=== PATIENT | male | born 1980 ===

== ENCOUNTER → 2021-06-20 11:05 | Outpatient (BNVA) | payer MEDICAID, SELFPAY | PROVIDERS: PCP Internal Medicine; Referring Provider Nurse Practitioner Primary Care; Visit Provider Surgery | DX: D17.1 Benign lipomatous neoplasm of skin and subcutaneous tissue of trunk (principal) | CPT/HCPCS: 99202 ==

== ENCOUNTER 2021-07-05 09:53 | Day surgery (SDC) | payer MEDICAID, SELFPAY ==
[2021-06-28 13:17] VITALS: BMI 26.4
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
[2021-07-05 10:13] VITALS: BP 153/105; PULSE 81; RESP 16; TEMP 36.6; O2SAT 97
[2021-07-05] MEDS: Lactated Ringers 1,000 ML 100 ML IVCONT (10:21)
--- NOTE | 2021-07-05 11:34 | MHC.SHP ---
Pre-Procedural Eval Section A Date of Service: 07/05/21 Section B Chief Complaint: lipoma of back Allergies: Allergies Allergy/AdvReac Type Severity Reaction Status Date / Time No Known Allergies Allergy Verified 06/20/21 11:15 [No Known Allergies*] Plan I have reviewed the history and physical and performed a pertinent physical examination on my patient. No changes have occurred unless specified.
--- NOTE | 2021-07-05 12:27 | P.OP_ITS ---
Operative Note Operative Note Date of Service: 07/05/21 Narrative: Preop diagnosis: Lipoma of back Postop diagnosis: The same Procedure: Excision of lipoma from the back under monitored anesthesia care Surgeon: Raz Nelson MD 1st infertility medical assistant: LAURA Anguiano The patient is a 41-year-old male with a lipomatous mass on the measuring about 4 cm in size. He wanted to proceed with excision and he wanted this done under monitored anesthesia care in view of his QA anxiety. He was aware of the risks, benefits, and alternatives. He was brought to the operating room placed in sloppy right lateral decubitus position under monitored anesthesia care. The lipoma was seen on the upper back a little to the left of the midline. This area was prepped and draped. A surgical time-out was done. Patient received cefazolin preoperatively. Lidocaine 1% was used to infiltrate the area. I then made the incision on the skin overlying the lipoma using a blade 15. This was carried down through the full-thickness of skin to the subcutaneous fat with electrocautery. We continued to dissect the subcutaneous fat until was able to visualize lipomatous tissue. I then sharply dissected the lipoma off the rest of the surrounding subcutaneous layer. I dissected this posteriorly off of the fascia. This was done sharply with Metzenbaum scissors as well as electrocautery. I was eventually able to free up the entire lipoma. The lipoma measured about 4.1 cm by 3.9 cm. I cauterized oozing areas on the excision site. Once hemostasis was ensured, I irrigated. I closed the deep subcutaneous layer with Dexon 3-0 interrupted sutures. Skin closure was achieved with Dexon 4-0 subcuticular stitch. Steri-Strips and dressings were applied. The incision was infiltrated with Marcaine 0.5% for postop analgesia and the procedure was completed The patient tolerated procedure well. There were no complication noted. Initial and final counts of sponges and instruments were correct. Estimated blood loss was about 5 cc. The patient is extubated without difficulty and transferred to the recovery room with stable vital signs.
[2021-07-05 12:50] VITALS: BP 108/68; PULSE 90; RESP 10; TEMP 36.9; O2SAT 97
[2021-07-05 13:04] VITALS: BP 124/96; PULSE 93; RESP 17; O2SAT 97
[2021-07-05 13:19] VITALS: BP 130/90; PULSE 77; RESP 17; TEMP 36.9; O2SAT 98
== END 2021-07-05 13:40 ==
LOC: HO.SSS 09:53
PROVIDERS: PCP Nurse Practitioner Primary Care; Visit Provider Surgery
PROC: (CPT 21931; principal; 2021-07-05 12:00)
DX: D17.1 Benign lipomatous neoplasm of skin and subcutaneous tissue of trunk (principal); I10 Essential (primary) hypertension; F43.10 Post-traumatic stress disorder, unspecified; F41.9 Anxiety disorder, unspecified; F41.0 Panic disorder [episodic paroxysmal anxiety]; Z79.899 Other long term (current) drug therapy; Z86.16 Personal history of COVID-19
CPT/HCPCS: 21931; 88304; J0690; J2250; J3010

== ENCOUNTER → 2021-07-17 11:31 | Outpatient (BNVA) | payer MEDICAID, SELFPAY | PROVIDERS: PCP Nurse Practitioner Primary Care; Referring Provider Nurse Practitioner Primary Care; Visit Provider Surgery | DX: D17.1 Benign lipomatous neoplasm of skin and subcutaneous tissue of trunk (principal); I10 Essential (primary) hypertension | CPT/HCPCS: 99212 ==

== ENCOUNTER 2022-05-15 16:03 | Emergency (ER) | payer MEDICAID, SELFPAY ==
--- NOTE | 2022-05-15 16:13 | ECG_ITS ---
Test Reason : chest tightness Blood Pressure : / mmHG Vent. Rate : 065 BPM Atrial Rate : 065 BPM P-R Int : 134 ms QRS Dur : 096 ms QT Int : 400 ms P-R-T Axes : 031 054 045 degrees QTc Int : 416 ms Normal sinus rhythm Normal ECG No previous ECGs available Referred By: Generic ED Physician Electronically Signed By:MICHELLE PRETTY
[2022-05-15 16:51] VITALS: BP 137/91; PULSE 66; RESP 18; TEMP 36.3; O2SAT 98; BMI 25.8
[2022-05-15 17:14] LABS: MANUAL DIFF FLAG NO
[2022-05-15 17:26] LABS: Basophils Percent Auto 0.3 % (0-2); Eosinophils Absolute Auto 0.1 X10*3/uL (0.0-0.4); Hematocrit 48.9 % (42.0-52.0); Imm Gran Abs Auto 0.02 X10*3/uL (0.00-0.03); Imm Gran Pct Auto 0.2 % (0.0-0.4); Lymphocytes Absolute Auto 2.7 X10*3/uL (1.2-4.9); Lymphocytes Percent Auto 31.1 % (20-40); Mean Corpuscular HGB Conc 32.7 g/dl (31.0-36.0); Mean Corpuscular Hemoglobin 27.6 pg (27.0-33.0); Mean Corpuscular Volume 84.5 fL (80.0-98.0); Mean Platelet Volume 8.7 fL (9.4-12.4); Monocytes Absolute Auto 0.8 X10*3/uL (0.1-1.2); Monocytes Percent Auto 8.9 % (2-11); Neutrophils Absolute Auto 5.1 x10*3/uL (2.0-8.3); Neutrophils Percent Auto 58.5 % (45-73); Platelet Count 408 X10*3/uL (160-400); Red Blood Count 5.79 X10*6/uL (4.60-5.80); Red Cell Distribution Width 12.6 % (11.0-16.0); White Blood Count 8.8 X10*3/uL (4.8-10.8)
[2022-05-15 17:27] LABS: Anion Gap 15 (12-20); Blood Urea Nitrogen 13 mg/dL (9-16); Carbon Dioxide 29 mmol/L (22-29); Chloride 101 mmol/L (96-108); Creatinine Clr Calc Pharmacy 97.4; Estimated Glomerular Filt Rate > 60; Glucose Random 80 mg/dL (60-115); Potassium 4.5 mmol/L (3.3-5.1); Sodium 140 mmol/L (135-145)
[2022-05-15 17:35] LABS: Troponin-I High Sensitivity < 3.5 ng/L (<3.5-35.0)
[2022-05-15 20:52] VITALS: BP 131/80; PULSE 58; RESP 15; O2SAT 97
== END 2022-05-15 21:46 | disposition left against medical advice (07) ==
PROVIDERS: Emergency Provider Emergency Medicine; PCP Nurse Practitioner Primary Care
DX: R07.89 Other chest pain (principal); Z79.899 Other long term (current) drug therapy
CPT/HCPCS: 36415; 80048; 84484; 85025; 93005; 99283

== ENCOUNTER 2022-05-16 14:39 | Emergency (ER) | payer MEDICAID, SELFPAY ==
--- NOTE | ~2022-05-16 | CT_ITS ---
EXAMINATION: CT HEAD WITHOUT CONTRAST CLINICAL INFORMATION: Right-sided pain and pressure COMPARISON: 09/22/2019 TECHNIQUE: Contiguous axial imaging was performed from the skull base to vertex without intravenous administration of contrast. This CT examination was performed using dose optimization techniques as appropriate, variously including the following: *Automated exposure control *Adjustment of mA and/or kV according to patient size (this includes techniques or standardized protocols for targeted exams where dose is matched to indication/reason for exam; i.e. extremities or head) *Use of iterative reconstruction technique DLP: 700 mGy-cm FINDINGS: There is no midline shift. There is no mass effect. There is no hemorrhage. The basilar cisterns appear patent. The posterior fossa is within normal limits. No extra-axial collection. The simons-white matter is maintained. The ventricular system is within normal limits. The partially visualized sinuses are grossly clear. CT/CT head/brain wo IV con IMPRESSION: No acute intracranial pathology.
--- NOTE | ~2022-05-16 | XR_ITS ---
EXAMINATION: XR CHEST CLINICAL INFORMATION: Chest pain COMPARISON: None TECHNIQUE: 2 views of the chest were obtained. FINDINGS: No acute finding. No infiltrate. There is no effusion. The cardiac silhouette is within normal limits. The hilar structures do not appear pathologically enlarged. There is no effusion. XR/XR chest 2V IMPRESSION: No acute finding.
[2022-05-16 15:45] VITALS: BP 135/89; PULSE 72; RESP 16; TEMP 36.9; O2SAT 95; BMI 25.8
[2022-05-16 16:54] VITALS: BP 141/95; PULSE 69; RESP 18; TEMP 36.7; O2SAT 97
--- NOTE | 2022-05-16 17:05 | PC.NURSE ---
was here yesterday afternoon, had labs drawn but left as hungry
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
[2022-05-16 17:33] LABS: MANUAL DIFF FLAG NO
[2022-05-16 17:37] LABS: Basophils Absolute Auto 0.1 X10*3/uL (0.0-0.2); Basophils Percent Auto 0.4 % (0-2); Eosinophils Percent Auto 0.4 % (0-4); Hematocrit 51.1 % (42.0-52.0); Hemoglobin 16.8 g/dl (14.0-18.0); Imm Gran Abs Auto 0.03 X10*3/uL (0.00-0.03); Imm Gran Pct Auto 0.3 % (0.0-0.4); Lymphocytes Absolute Auto 2.4 X10*3/uL (1.2-4.9); Lymphocytes Percent Auto 21.3 % (20-40); Mean Corpuscular HGB Conc 32.9 g/dl (31.0-36.0); Mean Corpuscular Hemoglobin 27.3 pg (27.0-33.0); Mean Platelet Volume 8.5 fL (9.4-12.4); Monocytes Absolute Auto 0.9 X10*3/uL (0.1-1.2); Monocytes Percent Auto 8.2 % (2-11); Neutrophils Absolute Auto 7.9 x10*3/uL (2.0-8.3); Neutrophils Percent Auto 69.4 % (45-73); Platelet Count 412 X10*3/uL (160-400); Red Blood Count 6.16 X10*6/uL (4.60-5.80); Red Cell Distribution Width 12.5 % (11.0-16.0); White Blood Count 11.4 X10*3/uL (4.8-10.8)
[2022-05-16 17:52] LABS: Alanine Aminotransferase 33 U/L (0-40); Albumin Level 4.6 g/dL (3.5-5.0); Alkaline Phosphatase 77 U/L (39-117); Anion Gap 16 (12-20); Aspartate Amino Transferase 21 U/L (5-37); Bilirubin Total 0.4 mg/dL (0.0-1.0); Blood Urea Nitrogen 13 mg/dL (9-16); Carbon Dioxide 28 mmol/L (22-29); Chloride 101 mmol/L (96-108); Creatinine Clr Calc Pharmacy 89.6; Estimated Glomerular Filt Rate > 60; Glucose Random 143 mg/dL (60-115); Potassium 4.5 mmol/L (3.3-5.1); Sodium 140 mmol/L (135-145); Total Protein 7.7 g/dL (6.5-8.0)
[2022-05-16 17:55] LABS: Troponin-I High Sensitivity < 3.5 ng/L (<3.5-35.0)
[2022-05-16 18:37] LABS: COVID-19 Test Negative (Negative)
== END 2022-05-16 19:43 | disposition home or self-care (01) ==
PROVIDERS: Physician Assistant Medical; Emergency Provider Internal Medicine; PCP Nurse Practitioner Primary Care
DX: R07.89 Other chest pain (principal); M79.10 Myalgia, unspecified site; F41.9 Anxiety disorder, unspecified; I10 Essential (primary) hypertension; Z20.822 Contact with and (suspected) exposure to COVID-19; Z79.899 Other long term (current) drug therapy
CPT/HCPCS: 70450; 71046; 80053; 82550; 83735; 84484; 85025; 87635; 99284

== ENCOUNTER 2023-09-28 11:19 | Outpatient (REF) | payer MEDICAID, SELFPAY ==
[2023-09-28 14:00] LABS: Anion Gap 14 (12-20); Blood Urea Nitrogen 12 mg/dL (9-16); Calcium 9.9 mg/dL (8.4-10.2); Carbon Dioxide 26 mmol/L (22-29); Chloride 103 mmol/L (96-108); Cholesterol 202 mg/dL (<200); Estimated Glomerular Filt Rate > 60; Glucose Random 96 mg/dL (60-115); HDL Cholesterol 53 mg/dL (>40); LDL Cholesterol Calculated 124 mg/dL (<100); Magnesium 2.3 mg/dL (1.6-2.6); Potassium 4.7 mmol/L (3.3-5.1); Sodium 138 mmol/L (135-145); Triglycerides 128 mg/dL (<150)
[2023-09-28 14:06] LABS: Creatinine Urine 100.52 mg/dL; Microalbumin Urine < 5.0 mg/L
== END 2023-09-28 11:20 | disposition home or self-care (01) ==
LOC: HO.HHCL 11:19
PROVIDERS: Visit Provider Nurse Practitioner Primary Care
DX: I10 Essential (primary) hypertension (principal); R25.2 Cramp and spasm; E78.5 Hyperlipidemia, unspecified
CPT/HCPCS: 36415; 80048; 80061; 82043; 82570; 83735

== ENCOUNTER 2024-02-12 13:59 | Outpatient (AMB) | payer MEDICAID, SELFPAY ==
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
[2024-02-12 14:07] VITALS: BP 124/84; PULSE 94; O2SAT 99; BMI 30.6
== END 2024-02-12 15:00 | disposition home or self-care (01) ==
PROVIDERS: PCP Nurse Practitioner Primary Care; Visit Provider Nurse Practitioner Family
DX: R06.83 Snoring (principal); G47.19 Other hypersomnia; G47.9 Sleep disorder, unspecified; R51.9 Headache, unspecified; R25.3 Fasciculation
CPT/HCPCS: 99204

== ENCOUNTER → 2024-02-12 13:59 | Outpatient (BNVA) | payer MEDICAID, SELFPAY | PROVIDERS: PCP Nurse Practitioner Primary Care; Visit Provider Nurse Practitioner Family | DX: R06.83 Snoring (principal); G47.19 Other hypersomnia; R51.9 Headache, unspecified; R25.3 Fasciculation | CPT/HCPCS: 99212 ==

== ENCOUNTER 2024-09-01 15:04 | Outpatient (REF) | payer MEDICAID, SELFPAY ==
--- NOTE | ~2024-09-01 | XR_ITS ---
CLINICAL HISTORY: pleuritic pain 2 view chest x-ray Comparison: None Findings: No consolidation or effusion. Heart size is normal. No acute fracture. IMPRESSION: 1. No acute findings. This document has been electronically signed by: Basil Huddleston MD on 09/06/2024 13:58:40
--- NOTE | ~2024-09-01 | XR_ITS ---
CLINICAL HISTORY: acute right shoulder pain 4 view right shoulder Comparison: None Findings: No fractures or dislocations. No significant loss of joint space or osteophytes. No erosions. No radiopaque foreign body. IMPRESSION: 1. No acute findings This document has been electronically signed by: Basil Huddleston MD on 09/06/2024 13:57:29
== END 2024-09-01 15:05 | disposition home or self-care (01) ==
LOC: HO.XRAY 15:04
PROVIDERS: PCP Nurse Practitioner Primary Care; Visit Provider Family Medicine
DX: R07.81 Pleurodynia (principal); M25.511 Pain in right shoulder
CPT/HCPCS: 71046; 73030

== ENCOUNTER → 2024-09-01 15:10 | Outpatient (BNV) | payer MEDICAID, SELFPAY | PROVIDERS: PCP Nurse Practitioner Primary Care; Visit Provider Radiology Diagnostic Radiology | DX: R07.81 Pleurodynia (principal); M25.511 Pain in right shoulder | CPT/HCPCS: 71046; 73030 ==

== ENCOUNTER 2025-08-15 11:10 | Outpatient (REF) | payer MEDICAID, SELFPAY ==
--- OUTSIDE RECORDS SUMMARY | 2025-08-14 11:15 | XMS_ITS | Encounter Summary ---
Author Organization [employer] Address [address] [place] [address] [address] [address] Care Team Providers Care Malware Analyst Name Role Phone Humaira Limon Primary Care Provider [phone] Reason for Referral * Consultation (Routine) - Authorized Specialty Diagnoses / Procedures Referred By Renetta t Referred To Contact Behavioral Health Diagnoses PTSD (post-traumatic stress disorder) Procedures Referral to Behavioral Health Humaira Limon ANP [address] [place] [address] Phone: tel: fax: Referral ID Status Reason Start Date Expiration Date Visits Requested Visits Authorized [id number] Authorized Specialty Services Required 5 08/14/2026 1 1 * Consultation (Routine) - Authorized Specialty Diagnoses / Procedures Referred By Renetta t Referred To Contact Gastroenterology Diagnoses Family history of colon cancer Humaira Limon ANP [address] [place], [place] Phone: tel: fax: [facility] Referral ID Status Reason Start Date Expiration Date Visits Requested Visits Authorized [id number] Authorized Specialty Services Required 5 08/14/2026 6 6 * Consultation (Routine) - Authorized Specialty Diagnoses / Procedures Referred By Contchani t Referred To Contact Cardiology Diagnoses Atypical chest pain Humaira Limon ANP [address] [place] [address] Phone: tel: fax: [facility] Referral ID Status Reason Start Date Expiration Date Visits Requested Visits Authorized [id number] Authorized Specialty Services Required 08/14/2026 6 6 * Imaging (Routine) - Authorized Specialty Diagnoses / Procedures Referred By Contchani t Referred To Contact Radiology Diagnoses Lung nodule seen on imaging study Procedures CT Chest w/o Contrast Humaira Limon ANP [address] [place] [address] Phone: tel: fax: [facility] [address] [place] [address] Phone: tel: fax: Referral ID Status Reason Start Date Expiration Date V isits Requested Visits Authorized [id number] Authorized 08/14/2025 08/14/2026 1 1 Reason for Visit * Reason Comments Follow-up PreDM Encounter Details Date Type Department Care Team (Late st Contact Info) Description 08/14/2025 11:15 AM EST Office Visit [facility] [address] [place] [address] Humaira Limon ANP [address] [place] [address] Prediabetes (Primary Dx); Lung nodule seen on imaging study; Family history of colon cancer; Family history of premature CAD; Atypical chest pain; Encounter for immunization; Essential hypertension; PTSD (post-traumatic stress disorder); Dietary counseling; Exercise counseling Social History Tobacco Use Types Packs/Day Years Used Date Smoking Tobacco: Never Passive Smoke Exposure: Never Smokeless Tobacco: Never Tobacco Cessation:Counseling Given: Not Answered Alcohol Use Standard Drinks/Week Comments Not Currently 0 (1 standard drink = 0.6 oz pur e alcohol) Depression Answer Date Recorded Patient Health Questionnaire-9 Score 8 08/14/2025 Patient Health Questionnaire-9 Score 8 08/14/2025 Last PHQ-9: Questionnaire Data Not on file 1 10/15/2024 Housing Stability Answer Date Recorded What is your housing situation today? I have daljit celeste 09/26/[address] you li ve. Do you have problems with any of the following? None of the above 09/26/2024 Food Insecurity Answer Date Recorded Within the past 12 months, y ou worried that your food would run out before you got money to buy more: Never True 02/01/2025 Within the past 12 months,th e food you bought just didn't last and you didn't have enough money to get more: Never True 11/2024 Transportation Answer Date Recorded In the past 12 months, has l ack of transportation kept you from medical appts, meetings, work or from getting things needed for daily living? No 11/01/2024 Utilities Answer Date Recorded In the past 12 months, has t he electric, gas, oil or water company threatened to shut off services in your home? No 02/01/2025 Depression Answer Date Recorded Patient Health Questionnaire-2 Score 2 08/14/2025 Internet Access Answer Date Recorded Internet Access Q1 Yes 11/01/2024 Internet Access Q2 Not on file 11/01/2024 Sex and Gender Information Value Date Recorded Sex Assigned at Male 06/30/2022 10:15 AM EDT Legal Sex Male 10:15 AM EDT Gender Identity Male 06/30/2022 10:15 AM EDT Sexual Orientation Straight 06/30/2022 10 :15 AM EDT documented as of this encounter Last Filed Vital Signs Vital Sign Reading Time Taken Comments Blood Pressure 120/80 08/14/2025 11:34 AM EST Pulse 72 08/14/2025 11:34 AM EST Temperature 36.3 C (97.3 F) 08/14/2025 11:34 AM EST Respiratory Rate 15 08/14/2025 11:34 AM EST Oxygen Saturation 95% 08/14/2025 11:34 AM EST Inhaled Oxygen Concentration - - Weight 95.3 kg (210 lb) 08/14/2025 11:34 AM EST Height 179.1 cm (5' 10.5 ) 08/14/2025 11:[address] Body Mass Index 29.71 08/14/2025 11:34 AM EST documented in this encounter Functional Status * Over the past 2 weeks, how often have you been bothered by any of the following problems? Question Answer Date of Assessment Author Patient Health Questionnaire -2 Score 2 08/14/2025 11:35 AM Pepe Nolan [place] * Little interest or pleasure in doing things Answer Date of Assessment Author Several days 08/14/2025 11:35 AM Pepe Nolan [place] * Feeling down, depressed, or hopeless Answer Date of Assessment Author Several days 08/14/2025 11:35 AM Pepe Nolan [place] * Trouble falling or staying asleep, or sleeping too much Answer Date of Assessment Author Several days 08/14/2025 11:35 AM Pepe Nolan MA * Feeling tired or having little energy Answer Date of Assessment Author Not at all 08/14/2025 11:35 AM Pepe Nolan [place] * Poor appetite or overeating Answer Date of Assessment Author Several days 08/14/2025 11:35 AM Pepe Nolan MA * Feeling bad about yourself - or that you are a failure or have let yourself or your family down Answer Date of Assessment Author Not at all 08/14/2025 11:35 AM Pepe Nolan MA * Trouble concentrating on things, such as reading the newspaper or watching television Answer Date of Assessment Author Nearly every day 08/14/2025 11:35 AM Pepe Nolan MA * Moving or speaking so slowly that other people could have noticed? Or the opposite - being so fidgety or restless that you have been moving around a lot more than usual. Answer Date of Assessment Author Several days 08/14/2025 11:35 AM Pepe Nolan MA * Thoughts that you would be better off or hurting yourself in some way Answer Date of Assessment Author Not at all 08/14/2025 11:35 AM Pepe Nolan MA * Patient Health Questionnaire-9 Score Answer Date of Assessment Author 8 08/14/2025 11:35 AM Pepe Nolan MA * Over the last 2 weeks, how often have you been bothered by any of the following problems? Question Answer Date of Assessment Author Feeling nervous, anxious, or on edge 1 08/14/2025 11:36 AM Pepe Nolan MA Not being able to stop or co ntrol worrying 1 08/14/2025 11:36 AM Pepe Nolan MA Worrying too much about diff erent things 1 08/14/2025 11:36 AM Pepe Nolan MA Trouble relaxing 1 08/14/2025 11:36 AM Pepe Nolan MA Being so restless that it is hard to sit still 0 08/14/2025 11:36 AM Pepe Nolan MA Becoming easily annoyed or irritable 0 08/14/2025 11:36 AM Pepe Nolan MA Feeling afraid as if somethi ng awful might happen 0 08/14/2025 11:36 AM Pepe Nolan MA BITA-7 Total Score 4 08/14/2025 11:36 AM Pepe Nolan MA * How difficult have these problems made it for you to do your work, take care of things at home, or get along with other people? Answer Date of Assessment Author Not difficult at all 08/14/2025 11:35 AM Pepe Parker MA documented as of this encounter Progress Notes * TIN Laws - 08/14/2025 11:15 AM EST SUBJECTIVE: Chirag Hdz is a 45 y.o. year old male who presents for chronic disease management. Denies recent illness, injury, or hospitalization. PMH preDM, PTSD, HTN, low HDL Acute Concerns: Did have sick visit at [facility] for OM R ear 07/26/25. Wants to repeat CT scan 09/11/24 He thinks mom had ND when she was young. He has had a few episodes again of L sided CP. Not assoc w/ exertion. No SOB/dizziness. Chirag Hdz, age: 45 years Ear Infection (Right Ear) - Recent right ear infection diagnosed about 1-2 weeks prior to visit - Treated with antibiotics (2 pills per day for about a week) prescribed by Dr. Robert - Pain resolved, but occasional sensation of wetness persists. Exam is wnl. COVID-19 - Had COVID-19 about one month prior to visit PTSD and Hallucinations - History of PTSD, previously on medication prescribed by Dr. 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, construction chemicals/particulate - Lives in building with shared ventilation, reports exposure to secondhand smoke Headaches and Chest Pain - Recent episodes of waking with sharp headaches - Occasional chest pain - Monitors blood pressure at home, associates high blood pressure with headaches, nausea, and dizziness Rash/Warts - History of rash and warts, previously treated with ointment and oral medication (tablets startingwith T ) - Rash recurred after stopping medication about 1-2 months ago - Still has remaining tablets at home [facility]CM OCP but actually is , about to give to 2nd kid (baby girl) Non-smoker No alcohol Lab Results Component Value Date HGBA1C 5.9 02/01/2025 Social History Social History Narrative Not on file Problem List[1] Surgical History[2] Family History[3] Review of Systems Constitutional: Negative for fatigue, fever and unexpected weight change. HENT: Negative for sore throat. Respiratory: Negative for chest tightness, shortness of breath and wheezing. Cardiovascular: Positive for chest pain. Negative for palpitations and leg swelling. Gastrointestinal: Negative for abdominal pain and constipation. Endocrine: Negative for polydipsia, polyphagia and polyuria. Genitourinary: Negative for difficulty urinating and dysuria. Musculoskeletal: Negative for back pain. Skin: Negative for rash. Neurological: Negative for weakness and headaches. OBJECTIVE: Vitals: 08/14/25 1134 BP: 120/80 BP Location: Left arm Patient Position: Sitting BP Cuff Size: Adult Pulse: 72 Resp: 15 Temp: 97.3 ??F (36.3 ??C) TempSrc: Temporal SpO2: 95% Weight: 210 lb (95.3 kg) Height: 5' 10.5 (1.791 m) Physical Exam Constitutional: General: He is not in acute distress. Appearance: Normal appearance. He is not ill-appearing. HENT: Head: Normocephalic and atraumatic. Right Ear: Tympanic membrane and ear canal normal. Left Ear: Tympanic membrane and ear canal normal. Eyes: General: No scleral icterus. Extraocular Movements: Extraocular movements intact. Pupils: Pupils are equal, round, and reactive to light. Cardiovascular: Rate and Rhythm: Normal rate and regular rhythm. Pulmonary: Effort: Pulmonary effort is normal. No accessory muscle usage or respiratory distress. Breath sounds: Normal breath sounds. Skin: General: Skin is warm and dry. Neurological: Mental Status: He is alert and oriented to person, place, and time. Psychiatric: Mood and Affect: Mood normal. Behavior: Behavior normal. ASSESSMENT/PLAN Chirag was seen today for follow-up. Diagnoses and all orders for this visit: Prediabetes (Primary) Lab Results Component Value Date HGBA1C 5.9 02/01/2025 Lifestyle recommendations: be as active as able, ideally exercise 150min moderate intensity or 75min vigorous intensity weekly; increase intake of vegetables, fruits, whole grains, fish. Try to minimize intake of sugary or greasy food and drink. Use olive oil or vegetable, peanut, canola, or similar oil for cooking. Decrease or stop drinking alcohol if you drink, quit/decrease smoking if you smoke. 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 Continue to encourage low salt diet, regular exercise, home BP monitoring, compliance with medications. Call clinic if BP is frequently >150/90 Go to ED/call 911 if > 170/100 and having sx such as SLAUGHTER, visual changes, chest pain, SOB Last renal function: Lab Results Component Value Date GLUCOSE 96 09/28/2023 NA 138 09/28/2023 K 4.7 09/28/2023 CO2 26 09/28/2023 CL 103 09/28/2023 BUN 12 09/28/2023 CREATININE 1.02 09/28/2023 EGFR >60 09/28/2023 Lab Results Component Value Date MICROALBCREA 3 10/29/2021 Lab Results Component Value Date MICROALBCREU TNP 09/28/2023 PTSD referral This note was drafted using Ambient (AI) technology. The patient/patient's guardian has been informed and has consented to the use of this technology: Yes Based on our discussion, I have outlined the following instructions for you: - Before your blood test, fast (do not eat or drink anything except water), and do not have coffee with creamer. - Plan for a repeat chest computed tomography (CT) scan in early October 2025 (not before the end of August 2025). - If the lung nodule stays under 6 millimeters and does not change on the next scan, you will not need more scans for it. - Schedule and complete a screening colonoscopy - Follow through with the cardiology referral for your chest pain and heart risk. - Expect a phone call from the behavioral health team Next appointment(s): - Behavioral health team outreach by phone - Radiology referral for repeat chest CT in early October - Gastroenterology referral for colonoscopy at age 46 - Cardiology referral for evaluation - Appointment with Dr. Diego per patient request Follow Up: Medications Ordered Prior to Encounter[4] Kinyarwanda Translation: Patient is bilingual and declines translation services [1] Patient Active Problem List Diagnosis PTSD (post-traumatic stress disorder) Prediabetes Low HDL (under 40) Essential hypertension Acute pain of right shoulder Acute otitis media [2] No past surgical history on file. [3] No family history on file. [4] Current Outpatient Medications on File Prior to Visit Medication Sig Dispense Refill acetaminophen (Tylenol Extra Strength) 500 MG tablet Take 1-2 tabs up to 3 times daily as needed for pain 60 tablet 0 amoxicillin-clavulanate (Augmentin) 875-125 MG tablet Take 1 tablet by mouth 2 times daily. 14 tablet 0 ARIPiprazole (Abilify) 5 MG tablet TAKE 1 TABLET BY MOUTH EVERY MORNING 90 tablet 1 betamethasone valerate (Valisone) 0.1 % ointment Use twice daily to right leg for rash, use for maximum 2 weeks at a time 45 g 1 cetirizine (ZyrTEC) 10 MG tablet TAKE 1 TABLET BY MOUTH EVERY 90 tablet 0 diclofenac (Cataflam) 50 MG tablet Take 1 tab twice daily with food 28 tablet 0 diphenhydrAMINE (BENADryl) 25 MG tablet Take 1 tablet (25 mg) by mouth every 6 (six) hours if needed for allergies for up to 7 days. 24 tablet 0 lisinopril 20 MG tablet TAKE 1 TABLET BY MOUTH EVERY DAY 90 tablet 1 omeprazole (PriLOSEC) [address] capsule TOME 1 CAPSULA POR VIA ORAL TODOS [place] JON[place] BEFORE A MEAL 90 capsule 1 No current facility-administered medications on file prior to visit. documented in this encounter Plan of Treatment Upcoming Encounters Date Type Department Care Team (Late st Contact Info) Description 10/27/2025 1:30 PM EST Office Visit [facility] [address] [place], [place] [phone] Virginia Arita, OD [address] [place] [address] 11/10/2025 9:30 AM EDT Office Visit [facility] [address] [place] [address] Humaira Limon ANP [address] [place] [address] Scheduled Orders Name Type Priority Associated Diagnoses Orde r Schedule CT Chest w/o Contrast Imaging Routine Lung nodule seen on imaging study Expected: 08/14/2025, Expires: 08/14/2026 Scheduled Referrals Name Type Priority Associated Diagnoses Order Schedule Referral to Cardiology Outpatient Referral Routine Atypical chest pain Expected: 08/14/2025 (Approximate), Expires: 08/14/2026 Referral to Gastroenterology Outpatient Referral Routine Family history of colon cancer Expected: 08/14/2025 (Approximate), Expires: 08/14/2026 documented as of this encounter Visit Diagnoses Diagnosis Prediabetes- Primary Other abnormal glucose Lung nodule seen on imaging study Family history of colon cancer Family history of malignant neoplasm of gastrointestinal tract Family history of premature CAD Family history of ischemic heart disease Atypical chest pain Other chest pain Encounter for immunization Essential hypertension Unspecified essential hypertension PTSD (post-traumatic stress disorder) Posttraumatic stress disorder Dietary counseling Dietary surveillance and counseling Exercise counseling documented in this encounter Additional Health Concerns Assessment Noted Time PHQ-9 Depression Total Score: 8 08/14/20 25 11:35 AM EST documented as of this encounter Care Teams Malware Analyst Relationship Specialty Start Date End Date Humaira Limon ANP [address] [place] [id number] PCP - General Family Medicine 04/24/21 documented as of this encounter
--- OUTSIDE RECORDS SUMMARY | 2025-08-15 14:46 | XMS_ITS | Encounter Summary ---
Author Organization [employer] Address [address] [facility] [address] [place] [address] Care Team Providers Care Biomedical Analytical Scientist Name Role Phone Humaira Limon Primary Care Provider [phone] Reason for Visit * Reason Comments Med Refill Encounter Details Date Type Department Care Team ([facility] st Contact Info) Description 03/04/2024 Refill [facility] [address] [place] [address] Humaira Limon ANP [address] [place] [address] Seasonal allergic rhinitis due to other allergic trigger; Eye swelling Social History Tobacco Use Types Packs/Day Years Used Date Smoking Tobacco: Never Passive Smoke Exposure: Never Smokeless Tobacco: Never Alcohol Use Standard Drinks/Week Comments Not Currently 0 (1 standard drink = 0.6 oz pur e alcohol) Depression Answer Date Recorded Patient Health Questionnaire-9 Score 2 03/02/2023 Housing Stability Answer Date Recorded What is your housing situation today? I have daljit celeste 06/15/[address] you li ve. Do you have problems with any of the following? None of the above 06/15/2023 Food Insecurity Answer Date Recorded Within the past 12 months, y ou worried that your food would run out before you got money to buy more: Never True 06/15/2023 Within the past 12 months,th e food you bought just didn't last and you didn't have enough money to get more: Never True Transportation Answer Date Recorded In the past 12 months, has l ack of transportation kept you from medical appts, meetings, work or from getting things needed for daily living? No 06/15/2023 Utilities Answer Date Recorded In the past 12 months, has t he electric, gas, oil or water company threatened to shut off services in your home? No 06/15/2023 Depression Answer Date Recorded Patient Health Questionnaire-2 Score 0 03/02/2023 Sex and Gender Information Value Date Recorded Sex Assigned at Male 06/30/2022 10:15 AM EDT Legal Sex Male 10:15 AM EDT Gender Identity Male 06/30/2022 10:15 AM EDT Sexual Orientation Straight 06/30/2022 10 :15 AM EDT documented as of this encounter Plan of Treatment Upcoming Encounters Date Type Department Care Team (Late st Contact Info) Description 10/27/2025 1:30 PM EST Office Visit [facility] [address] [place] [address] Tarka [place], OD [address] [place] [address] 11/10/2025 9:30 AM EDT Office Visit [facility] [address] [place] [address] Humaira Limon ANP [address] [place] [address] documented as of this encounter Visit Diagnoses Diagnosis Seasonal allergic rhinitis due to other allergic trigger Eye swelling Swelling or mass of eye documented in this encounter Additional Health Concerns Assessment Noted Time PHQ-9 Depression Total Score: 2 03/02/20 23 10:19 AM EDT documented as of this encounter Care Teams Biomedical Analytical Scientist Relationship Specialty Start Date End Date Humaira Limon ANP [address] [place] [address] PCP - General Family Medicine 04/24/21 documented as of this encounter
--- OUTSIDE RECORDS SUMMARY | 2025-08-15 14:46 | XMS_ITS | Encounter Summary ---
Author Organization [employer] Address [address] [facility] [address] [place] [address] Care Team Providers Care Telesales Manager Name Role Phone Humaira Limon TIN Primary Care Provider [phone] Encounter Details Date Type Department Care Team (Latest Contact Info) Description 08/13/2025 Travel Social History Tobacco Use Types Packs/Day Years [...] Description 10/27/2025 1:30 PM EST Office Visit [facility] [address] [place], [place] [phone] Virginia Arita, OD [address] [place] [address] 11/10/2025 9:30 AM EDT Office Visit [facility] [address] [place] [address] Humaira Limon ANP [address] [place] [address] documented as of this encounter Visit Diagnoses Not on filedocumented in this encounter Additional Health Concerns Assessment Noted Time PHQ-9 Depression Total Score: 5 09/26/19 25 1:15 PM EST documented as of this encounter Care Teams Telesales Manager Relationship Specialty Start Date End Date Humaira Limon ANP [address] [place] [id number] PCP - General Family Medicine 04/24/21 documented as of this encounter
--- OUTSIDE RECORDS SUMMARY | 2025-08-15 14:46 | XMS_ITS | Encounter Summary ---
Author Organization [employer] Address [address] [facility] [address] [place] [address] Care Team Providers Care Game Advisor Name Role Phone Braxton Humaira CASTLE Primary Care Provider [phone] Reason for Visit * Reason Onset Date Comments Med Refill Appointment 12/06/2022 Encounter Details Date Type Department Care Team (Late st Contact Info) Description 12/06/2022 Refill [facility] [address] [place] [address] Darnell Dumont FNP PTSD (post-traumatic stress disorder) Social History Tobacco Use Types Packs/Day Years Used Date Smoking Tobacco: Never Assessed PHQ-2 Answer Date Recorded Patient Health Questionnaire-2 Score 6 09/09/2022 Sex and Gender Information Value Date Recorded Sex Assigned at Male 06/30/2022 10:15 AM EDT Legal Sex Male 10:15 AM EDT Gender Identity Male 06/30/2022 10:15 AM EDT Sexual Orientation Straight 06/30/2022 10 :15 AM EDT documented as of this encounter Miscellaneous Notes * Telephone Encounter - Kristen Moya - 12/12/2022 1:27 PM EDT T/C placed to pt unable to left a voice massage. This call was regarding to schedule an appointmentfor as [id number]. * Telephone Encounter - Kristen Moya - 12/10/2022 3:04 PM EDT T/C placed to pt unable to left a voice massage. This call was regarding to schedule an appointmentfor as [id number] documented in this encounter Plan of Treatment Upcoming Encounters Date Type Department Care Team (Late st Contact Info) Description 10/27/2025 1:30 PM EST Office Visit [facility] [address] [place], [place] [phone] Virginia Arita, OD [address] [place] [address] 11/10/2025 9:30 AM EDT Office Visit [facility] [address] [place], [place] [phone] Humaira Limon ANP [address] [place], [place] [phone] documented as of this encounter Visit Diagnoses Diagnosis PTSD (post-traumatic stress disorder) Posttraumatic stress disorder documented in this encounter Additional Health Concerns Assessment Noted Time PHQ-9 Depression Total Score: 17 023 3:25 PM EST documented as of this encounter Care Teams Game Advisor Relationship Specialty Start Date End Date Humaira Limon ANP [address] [place] [id number] PCP - General Family Medicine 04/24/21 documented as of this encounter
--- OUTSIDE RECORDS SUMMARY | 2025-08-15 14:46 | XMS_ITS | Encounter Summary ---
Author Organization [employer] Address 75 [facility] 7t [place] [address] Care Team Providers Care Hogshead Mat Assembler Name Role Phone Braxton Humaira CASTLE Primary Care Provider [phone] Reason for Visit * Reason Comments Med Refill Encounter Details Date Type Department Care Team ([facility] st Contact Info) Description 07/12/2023 Refill [facility] [address] [place], [place] [phone] Joon Ramirez MD 230 [place] [address] Essential hypertension Social History Tobacco Use Types Packs/Day Years Used Date Smoking Tobacco: Never Smokeless Tobacco: Never Alcohol Use Standard [...] Description 10/27/2025 1:30 PM EST Office Visit [facility] [address] [place], [place] [phone] TarVirginia tello, OD [address] [place] [address] 11/10/2025 9:30 AM EDT Office Visit [facility] [address] [place] [address] Humaira Limon ANP 230 [place] [address] documented as of this encounter Visit Diagnoses Diagnosis Essential hypertension Unspecified essential hypertension documented in this encounter Additional Health Concerns Assessment Noted Time PHQ-9 Depression Total Score: 2 03/02/20 23 10:19 AM EDT documented as of this encounter Care Teams Hogshead Mat Assembler Relationship Specialty Start Date End Date Humaira Limon ANP 230 [place] [address] PCP - General Family Medicine 04/24/21 documented as of this encounter
--- OUTSIDE RECORDS SUMMARY | 2025-08-15 14:46 | XMS_ITS | Encounter Summary ---
Author Organization [employer] Address 75 [facility] 7t [place] [address] Care Team Providers Care Flight Teacher Name Role Phone Humaira Limon Primary Care Provider Encounter Details Date Type Department Care Team ([facility] st Contact Info) Description 08/10/2025 Telephone [facility] 230 [place] [address] Humaira Limon ANP 230 [place] [address] Social History Tobacco Use Types Packs/Day Years Used Date Smoking Tobacco: Never Passive Smoke Exposure: Never Smokeless Tobacco: Never Alcohol Use Standard Drinks/Week Comments Not Currently 0 (1 standard drink = 0.6 oz pur e alcohol) Depression Answer Date Recorded Patient Health Questionnaire-9 Score 5 09/26/2024 Patient Health Questionnaire-9 Score 5 09/26/2024 Last PHQ-9: Questionnaire Data Not on file 0 09/26/2024 Housing Stability Answer Date Recorded What is [...] Date Recorded Patient Health Questionnaire-2 Score 2 09/26/2024 Internet Access Answer Date Recorded Internet Access [...] encounter Miscellaneous Notes * Telephone Encounter - Pepe Mathews [place] - 08/10/2025 3:48 PM EST Chart Prep Labs: done Images: done Referrals: complete Vaccines due: Covid, Flu, and Hep B Screenings: None Overdue care gaps: SBIRT, PHQ-9, and BITA-7 documented in this encounter Plan of Treatment Upcoming Encounters Date Type Department Care Team (Late st Contact Info) Description 10/27/2025 1:30 PM EST Office Visit [facility] [address] [place] [address] Virginia Arita, OD [address] [place] [address] 11/10/2025 9:30 AM EDT Office Visit [facility] 230 [place] [address] Humaira Limon ANP 230 [place] [address] documented as of this encounter Visit Diagnoses Not on filedocumented in this encounter Additional Health Concerns Assessment Noted Time PHQ-9 Depression Total Score: 5 09/26/19 25 1:15 PM EST documented as of this encounter Care Teams Flight Teacher Relationship Specialty Start Date End Date Humaira Limon ANP 230 [place] [address] PCP - General Family Medicine 04/24/21 documented as of this encounter
--- OUTSIDE RECORDS SUMMARY | 2025-08-15 14:46 | XMS_ITS | Encounter Summary ---
Author Organization [employer] Address [address] [place] [address] 7 [place] [address] Care Team Providers Care Sand Mill Operator Core Sand Name Role Phone Humaira Limon Primary Care Provider Reason for Visit * Reason Comments Med Refill Encounter Details Date Type Department Care Team (Late st Contact Info) Description 11/03/2022 Refill [facility] [address] [place], [place] [phone] Darnell Dumont FNP PTSD (post-traumatic stress disorder) [...] Description 10/27/2025 1:30 PM EST Office Visit [facility] OPT[facility] [address] [place], [place] [phone] Virginia Arita OD [address] [place], [place] [phone] 11/10/2025 9:30 AM EDT Office Visit [facility] MED[facility] 230 [place], [place] [phone] Humaira Limon ANP 230 [place], [place] [phone] documented as of this encounter Visit Diagnoses Diagnosis PTSD (post-traumatic stress disorder) Posttraumatic stress disorder documented in this encounter Additional Health Concerns Assessment Noted Time PHQ-9 Depression Total Score: 17 023 3:25 PM EST documented as of this encounter Care Teams Sand Mill Operator Core Sand Relationship Specialty Start Date End Date Humaira Limon ANP 230 [place] [address] PCP - General Family Medicine 04/24/21 documented as of this encounter
--- OUTSIDE RECORDS SUMMARY | 2025-08-15 14:46 | XMS_ITS | Encounter Summary ---
Author Organization [employer] Address [address] [place] [address] 7 [place] [address] Care Team Providers Care Metal Fabrication Supervisor Name Role Phone Humaira Limon Primary Care Provider Encounter Details Date Type Department Care Team (Late st Contact Info) Description 01/19/2023 Orders Only [facility] [address] [place] [address] Yajaira Reddy LPN Social History Tobacco Use Types Packs/Day Years [...] Description 10/27/2025 1:30 PM EST Office Visit [facility] [address] [place], [place] [phone] TarVirginia tello, OD [address] [place] [address] 11/10/2025 9:30 AM EDT Office Visit [facility] 230 [place] [address] Humaira Limon ANP 230 [place] [address] documented as of this encounter Visit Diagnoses Not on filedocumented in this encounter Additional Health Concerns Assessment Noted Time PHQ-9 Depression Total Score: 17 023 3:25 PM EST documented as of this encounter Care Teams Metal Fabrication Supervisor Relationship Specialty Start Date End Date Humaira Limon ANP 230 [place] [address] PCP - General Family Medicine 04/24/21 documented as of this encounter
--- OUTSIDE RECORDS SUMMARY | 2025-08-15 14:47 | XMS_ITS | Encounter Summary ---
Author Organization [employer] Address [address] [place] [address] 7 [place] [address] Care Team Providers Care Resort Keeper Name Role Phone Humaira Limon Primary Care Provider [phone] Encounter Details Date Type Department Care Team (Late st Contact Info) Description 10/22/2022 Orders Only [facility] MED[facility] [address] [place] [address] Yajaira Reddy LPN Social History Tobacco Use [...] Description 10/27/2025 1:30 PM EST Office Visit [facility] OPT[facility] [address] [place], [place] [phone] TarVirginia tello, OD [address] [place] [address] 11/10/2025 9:30 AM EDT Office Visit [facility] 230 [place] [address] Humaira Limon ANP 230 [place] [address] documented as of this encounter Visit Diagnoses Not on filedocumented in this encounter Additional Health Concerns Assessment Noted Time PHQ-9 Depression Total Score: 17 023 3:25 PM EST documented as of this encounter Care Teams Resort Keeper Relationship Specialty Start Date End Date Humaira Limon ANP 230 [place] [address] PCP - General Family Medicine 04/24/21 documented as of this encounter
--- OUTSIDE RECORDS SUMMARY | 2025-08-15 14:47 | XMS_ITS | Encounter Summary ---
Author Organization [employer] Address 75 [facility] 7 [place] [address] Care Team Providers Care Data Communications Technician Name Role Phone Humaira Limon Primary Care Provider [phone] Reason for Visit * Reason Onset Date Comments Med Refill 12/31/2024 Encounter Details Date Type Department Care Team ([facility] st Contact Info) Description 12/31/2024 Refill [facility] 230 [place] [address] Humaira Limon ANP 230 [place] [address] Social History Tobacco Use Types Packs/Day Years [...] before you got money to buy more: Sometimes True 2024 Within the past 12 months,th e food you bought just didn't last and you didn't have enough money to get more: Sometimes True 11/01/2024 Transportation Answer Date Recorded In the past 12 months, has l ack of transportation kept you from medical appts, meetings, work or from getting things needed for daily living? No 11/01/2024 Utilities Answer Date Recorded In the past 12 months, has t he electric, gas, oil or water company threatened to shut off services in your home? I am not sure 11/01/2024 Depression Answer Date Recorded Patient Health Questionnaire-2 [...] Description 10/27/2025 1:30 PM EST Office Visit [facility] [address] [place] [address] TarkaVirginia, OD 267 [place] [address] 11/10/2025 9:30 AM EDT Office Visit [facility] 230 [place] [address] Humaira Limon ANP 230 [place] [address] documented as of this encounter Visit Diagnoses Not on filedocumented in this encounter Additional Health Concerns Assessment Noted Time PHQ-9 Depression Total Score: 5 09/26/19 25 1:15 PM EST documented as of this encounter Care Teams Data Communications Technician Relationship Specialty Start Date End Date Humaira Limon ANP [address] [place] [address] PCP - General Family Medicine 04/24/21 documented as of this encounter
--- OUTSIDE RECORDS SUMMARY | 2025-08-15 14:47 | XMS_ITS | Encounter Summary ---
Author Organization [employer] Address [address] [facility] [address] 7[address] [place] [address] Care Team Providers Care Enrobing Machine Corder Name Role Phone Humaira Limon TIN Primary Care Provider [phone] Encounter Details Date Type Department Care Team (Latest Contact Info) Description 08/14/2025 Travel Social History Tobacco Use Types Packs/Day [...] AM EDT documented as of this encounter Functional Status * Over the [...] Parker [place] documented as of this encounter Plan of Treatment Upcoming Encounters Date Type Department Care Team (Late st Contact Info) Description 10/27/2025 1:30 PM EST Office Visit [facility] OPT[facility] [address] [place] [address] Virginia Arita, OD 267 [place] [address] 11/10/2025 9:30 AM EDT Office Visit [facility] MEDIC[facility] 230 [place] [address] Humaira Limon ANP 230 [place] [address] documented as of this encounter Visit Diagnoses Not on filedocumented in this encounter Additional Health Concerns Assessment Noted Time PHQ-9 Depression Total Score: 8 08/14/20 25 11:35 AM EST documented as of this encounter Care Teams Enrobing Machine Corder Relationship Specialty Start Date End Date Humaira Limon ANP 230 [place] [address] PCP - General Family Medicine 04/24/21 documented as of this encounter
--- OUTSIDE RECORDS SUMMARY | 2025-08-15 14:47 | XMS_ITS | Clinical Summary ---
Author Organization [employer] Address 75 [facility] 7t [place] [address] Care Team Providers Care Fisher Swordfish Name Role Phone Braxton Humaira CASTLE Primary Care Provider [phone] Allergies No known active allergies Medications * This document contains information received from the source organization and may not represent a complete record from that organization. diphenhydrAMINE (BENADryl) 25 MG tabletIndicatio ns:Eye swelling Take 1 tablet (25 mg) by mouth every 6 (six) hours if needed for allergies for up to 7 days. 24 tablet 01/27/20 24 Active ARIPiprazole (Abilify) 5 MG tablet TAKE 1 TABLET BY MOUTH EVERY MORNING 90 tablet 1 03/21/20 24 Active diclofenac (Cataflam) 50 MG tabletIndicatio ns:Acute pain of right shoulder Take 1 tab twice daily with food 28 tablet 09/26/19 25 Active betamethasone valerate (Valisone) 0.1 % ointmentIndicat ions:Rash Use twice daily to right leg for rash, use for maximum 2 weeks at a time 45 g 1 02/02/20 25 Active omeprazole (PriLOSEC) [address] capsule TOME 1 CAPSULA POR VIA ORAL TODOS [place] BEFORE A MEAL 90 capsule 1 04/04/20 25 Active lisinopril 20 MG tabletIndicatio ns:Essential hypertension TAKE 1 TABLET BY MOUTH EVERY DAY 90 tablet 1 07/25/20 25 Active cetirizine (ZyrTEC) 10 MG tabletIndicatio ns:Right ear pain TAKE 1 TABLET BY MOUTH EVERY 90 tablet 07/25/20 25 Active acetaminophen (Tylenol Extra Strength) 500 MG tabletIndicatio ns:Acute pain of right shoulder Take 1-2 tabs up to 3 times daily as needed for pain 60 tablet 07/26/20 Active amoxicillin-cla vulanate (Augmentin) 875-125 MG tablet Take 1 tablet by mouth 2 times daily. 14 tablet 07/26/20 Active acetaminophen (Tylenol Extra Strength) 500 MG tabletIndicatio ns:Acute pain of right shoulder Take 1-2 tabs up to 3 times daily as needed for pain 60 tablet 09/26/19 025 Discontinued(Re order (will not trigger notification to Pharmacy)) lisinopril 20 MG tabletIndicatio ns:Essential hypertension TOME 1 TABLETA POR VIA ORAL TODOS [place] JON[place] PARA LA PRESION ARTERIAL 90 tablet 1 01/25/20 025 Discontinued cetirizine (ZyrTEC) 10 MG tabletIndicatio ns:Right ear pain Take 1 tablet (10 mg) by mouth Once per day. 90 tablet 04/26/20 025 Discontinued(Re order (will not trigger notification to Pharmacy)) Active Problems Problem Noted Date Diagnosed Date Acute otitis media 02/28/2025 Acute pain of right shoulder 09/01/2024 Assessment & Plan (09/01/2024 2:43 PM EST): -Recommend ibuprofen and steroid burst Physical therapy referral offered. -x ray ordered -given severity and duration, referral to orthopedics placed. -Lifting precaution sand stretching reviewed. Prediabetes 01/23/2023 Low HDL (under 40) 01/23/2023 PTSD (post-traumatic stress disorder) 08/13/2022 Assessment & Plan (03/02/2023 11:01 AM EDT): Off meds since recent incarceration. He previously done very well with Abilify 5 mg and would like to resume that now. He will remain off Hydroxyzine 25 mg, Venlafaxine 37.5, and Prazosin 1 mg. Continue with his therapist. F/U with me in 2 months. He agrees with the plan. Assessment & Plan (09/09/2022 5:11 PM EST): Had been much improved with addition of Abilify, which on his own he increased to Abilify 10 mg daily. Will now increase to Abilify 20 mg daily (and reviewed that he shoud not increase dosing of medication without discussing with provider). I acknowledged that Klonopin was certainly very effective for anxiety, but there was a very high risk of habituation, and I would not recommend that as a medication for him. He may take Hydroxyzine 25 mg up to 3-4 tablets every 6 hours, taken at first sign of panic attack. Will also add Venlafaxine 37.5 mg once daily with food x 1 week, then may increase to 2 daily. Reviewed that there was a risk that this would also cause sexual side effects similar to his previous Fluoxetine. Continue other meds and with counseling. will also continue with his therapist. F/U 1 month. He agrees with the plan. Essential hypertension 12/26/2021 Encounters Date Type Department Care Team Description 08/14/2025 11:15 AM EST Office Visit [facility] [address] [place] [address] Humaira Limon ANP Prediabetes (Primary Dx); Lung nodule seen on imaging study; Family history of colon cancer; Family history of premature CAD; Atypical chest pain; Encounter for immunization; Essential hypertension; PTSD (post-traumatic stress disorder); Dietary counseling; Exercise counseling 08/14/2025 Travel 08/13/2025 Travel 08/10/[address] [address] Humaira Limon ANP 08/07/2025 Patient Outreach [facility] [address] [place], [place] [phone] Humaira Limon ANP Pre-visit Planning ([facility] unable to reach [facility] ) 07/26/2025 9:40 AM EST Office Visit [facility] [address] [place] [phone] Binh Robert MD Acute suppurative otitis media of right ear without spontaneous rupture of tympanic membrane, recurrence not specified (Primary Dx); Essential hypertension; Acute pain of right shoulder 07/26/2025 Travel 07/25/2025 Refill [facility] [address] [place] [address] Lulú Johnston, LOS Right ear pain 07/25/2025 Refill [facility] [address] [place] [address] Humaira Limon ANP Essential hypertension; Right ear pain 07/24/2025 Telephone [facility] [address] [place] [address] Humaira Limon ANP Nurse Triage 05/22/2025 Telephone [facility] [address] [place] [address] Humaira Limon ANP dec recall from Last 3 Months Immunizations Immunization Administration Dates Next Due HPV 9-Valent 04/04/2025,07/29/2022,06/25/2022 Influenza injectable quadriv alent preservative free 06/12/2023,07/17/2021,05/20/2016 Influenza, seasonal, injecta ble, preservative free 08/14/2025 Moderna Covid-19 Vaccine 12+ 09/20/2020 Tdap 09/22/2023,07/17/2021 Social History Tobacco Use Types Packs/Day Years [...] Orientation Straight 06/30/2022 10 :15 AM EDT Last Filed Vital Signs Vital Sign Reading [...] Mass Index 29.71 08/14/2025 11:34 AM EST Plan of Treatment Upcoming Encounters Date Type Department Care Team (Late st Contact Info) Description 10/27/2025 1:30 PM EST Office Visit [facility] [address] [place] [address] Virginia Arita, OD [address] [place] [address] 11/10/2025 9:30 AM EDT Office Visit [facility] [address] [place] [address] Humaira Limon ANP [address] [place] [address] Health Maintenance Due Date Last Done Comments Hepatitis B Vaccines (1 of 3 - 19+ 3-dose series) 01/23/2000 COVID-19 Vaccine (2024- season) 2025 09/17/2022, 08/08/2021, 12/19/2020, Additional history exists Diabetes: Hemoglobin A1C 02/01/2026 025, 09/26/2024, 07/29/2022, Additional history exists SDOH Screening 02/01/2026 02/01/2025 Disability Screening 08/13/2026 08/13/2025 Alcohol/Substance Use Screening 08/14/2026 08/14/2025 Depression Screening 08/14/2026 08/14/2025, 08/14/20 Family Planning (PISQ) 08/14/2026 08/14/2025 Tobacco Screening 08/14/2026 08/14/2025 Lipid Panel 09/28/2028 09/28/2023, 07/02, 07/29/2022, Additional history exists Zoster Vaccines (1 of 2) 2031 DTaP/Tdap/Td Vaccines (3 - Td or Tdap) 09/22/2033 09/22/2023, 07/17/2021 RSV Patients and Patients Aged 60 years or older (1 - 1-dose 75+ series) 01/23/2056 HIV Screening Completed 04/03/2021, 07/19/2019 Hepatitis C Screening Completed 04/03/2021, 019 HPV Vaccines Completed 04/04/2025, 07/02, 06/25/2022 Influenza Vaccine Completed 08/14/2025, , 07/17/2021, Additional history exists HIB Vaccines Aged Out No longer eligi ble based on patient's age to complete this topic Hepatitis A Vaccines Aged Out No long er eligible based on patient's age to complete this topic IPV Vaccines Aged Out No longer eligi ble based on patient's age to complete this topic Meningococcal B Vaccine Aged Out No l onger eligible based on patient's age to complete this topic Meningococcal Vaccine Aged Out No henny bettina eligible based on patient's age to complete this topic Pneumococcal Vaccine: Pediatrics (0 to 5 Years) and At-Risk Patients (6 to 49) Years Aged Out No longer eligible based on patient's age to complete this topic RSV under 20 months Aged Out No longe r eligible based on patient's age to complete this topic Rotavirus Vaccines Aged Out No longer eligible based on patient's age to complete this topic Procedures Procedure Name Priority Date/Time Associated Diagnosis Comments POCT GLYCATED HEMOGLOBIN, TOTAL Routine 02/01/2025 3:24 PM EDT Prediabetes LIPID PANEL, STANDARD Routine 09/28/2023 11:22 AM EST Dyslipidemia ZZZ HISTORICAL HEPATITIS C AB W/REFL TO HCV RNA, QN, PCR Routine 04/03/2021 4:11 PM EDT HIV 1/2 ANTIGEN/ANTIBODY, FOURTH GENERATION W/RFL Routine 04/03/2021 4:11 PM EDT from Last 3 Months or Most Recently Relevant to Health Maintenance Results * POCT HGB A1C (02/01/2025 3:24 PM EDT) Hemoglobin A1C 5.9 4.0 - 6.0 % QC Media Lot # [id number] Lot# Expiration Date Blood 02/01/2025 3:24 PM EDT Replaced by [facility] POINT OF CARE TEST ENTER/EDIT OR DERABLES Final Result * (ABNORMAL) Lipid Panel, Standard (09/28/2023 11:22 AM EST) Triglycerides 128 <150 mg/dL [facility] Comment:Desirable Triglyceri de: less than 150 mg/dLBorderline High Triglyceride 150-199 mg/dLHigh Triglyceride: 200-499 mg/dLVery High Triglyceride: greater than or equal to 5OO mg/dL Cholesterol 202(H) <200 mg/dL [facility] Comment:Desirable Cholestero l: less than 200 mg/dLBorderline High Cholesterol: 200-239 mg/dLHigh Cholesterol: greater than 239 mg/dL LDL Cholesterol Calculated 124(H) <100 mg/dL [facility] Comment:Desirable LDL: less than 100 mg/dLNear Optimal/Above Optimal LDL: 110- 129 mg/dLBorderline High LDL: 130-159 mg/dLHigh LDL: 160-189 mg/dLVery High LDL: greater than or equal to 190 mg/dL HDL Cholesterol 53 >40 mg/dL [facility] Comment:Desirable HDL: great er than 40 mg/dL Note: This HDL assay may give artificially low results in patients with liver disease. Blood Venous blood specimen / Unknown 09/28/2023 11:22 AM EST 09/28/2023 1:04 PM EST Humaira Limon ANP LAB BLOOD ORDERABLES Final Resul t Performing Organization Address [facility] Co de Phone Number [facility] [address] [place] [phone] * HEPATITIS C AB W/REFL TO HCV RNA, QN, PCR (04/03/2021 4:11 PM EDT) HEPATITIS C ANTIBODY NON-REACT JAROD NON-REACT JAROD [facility] INDEX 0.01 <1.00 [facility] Comment: HCV antibody was non-reactive. There is no laboratory evidence of HCV infection. In most cases, no further action is required. However, if recent HCV exposure is suspected, a test for HCV RNA (test code 99076) is suggested. For additional information please refer to http://education.[employer]/faq/FWV27z3 (This link is being provided for informational/ educational purposes only.) 04/03/2021 4:11 PM EDT us Humaira Limon ANP HISTORICAL/NON ORDERABLE LABS Fi nal Result Performing Organization Address City/[facility] Hospital/ZIP Co de Phone Number [facility] [address] * HIV 1/2 ANTIGEN/ANTIBODY,FOURTH GENERATION W/RFL (04/03/2021 4:11 PM EDT) HIV-1/2 ANTIGEN AND ANTIBODIES, 4TH GENERATION W/ REFLEX NON-REACT JAROD NON-REACT JAROD [facility] Comment: HIV-1 antigen and HIV-1/HIV-2 antibodies were not detected. There is no laboratory evidence of HIV infection. PLEASE NOTE: This information has been disclosed to you from records whose confidentiality may be protected by state law. If your state requires such protection, then the state law prohibits you from making any further disclosure of the information without the specific written consent of the person to whom it pertains, or as otherwise permitted by law. A general authorization for the release of medical or other information is NOT sufficient for this purpose. For additional information please refer to http://education.[employer]/faq/QQR464 (This link is being provided for informational/ educational purposes only.) The performance of this assay has not been clinically validated in patients less than 2 years old. 04/03/2021 4:11 PM EDT Replaced by [facility] LAB BLOOD ORDERABLES Final Resul t Performing Organization Address City/State/[facility] Co nc Phone Number [facility] [address] from Last 3 Months or Most Recently Relevant to Health Maintenance Insurance [facility] C3 Care Teams Fisher Swordfish Relationship Specialty Start Date End Date Humaira Limon ANP [address] [place] [address] PCP - General Family Medicine 04/24/21
--- OUTSIDE RECORDS SUMMARY | 2025-08-15 14:47 | XMS_ITS | Encounter Summary ---
Author Organization [employer] Address [address] [facility] [address] [place] [address] Care Team Providers Care School Librarian Name Role Phone Humaira Limon Primary Care Provider [phone] Reason for Visit * Reason Onset Date Comments Med Refill 09/01/2024 Encounter Details Date Type Department Care Team ([facility] st Contact Info) Description 09/01/2024 Refill [facility] [address] [place] [address] Humaira Limon ANP [address] [place] [address] Social History Tobacco Use Types Packs/Day Years [...] Description 10/27/2025 1:30 PM EST Office Visit [facility] [address] [place] [address] Virginia Arita, OD [address] [place] [address] 11/10/2025 9:30 AM EDT Office Visit [facility] [address] [place] [address] Humaira Limon ANP [address] [place] [address] documented as of this encounter Visit Diagnoses Not on filedocumented in this encounter Additional Health Concerns Assessment Noted Time PHQ-9 Depression Total Score: 2 03/02/20 23 10:19 AM EDT documented as of this encounter Care Teams School Librarian Relationship Specialty Start Date End Date Humaira Limon ANP [address] [place] [id number] PCP - General Family Medicine 04/24/21 documented as of this encounter
--- OUTSIDE RECORDS SUMMARY | 2025-08-15 14:47 | XMS_ITS | Clinical Summary ---
Author Organization [address] [facility] Address [address] [place] [address] Phone Care Team Providers Care Executive Vice President Of Sales Name Role Phone Humaira Limon NP Primary Care Provider [phone] Allergies No known active allergies Medications No known medications Social History Tobacco Use Types Packs/Day Years Used Date Smoking Tobacco: Never Assessed Sex and Gender Information Value Date Recorded Sex Assigned at Not on file Legal Sex Male 3:10 PM EST Gender Identity Not on file Sexual Orientation Not on file Last Filed Vital Signs Vital Sign Reading Time Taken Comments Blood Pressure - - Pulse - - Temperature - - Respiratory Rate - - Oxygen Saturation - - Inhaled Oxygen Concentration - - Weight 93 kg (205 lb) 04/04/2025 10:00 AM EDT Height 177.8 cm (5' 10 ) 04/04/2025 10:00 AM EDT Body Mass Index 29.41 04/04/2025 10:00 AM EDT Plan of Treatment Health Maintenance Due Date Last Done Comments Hepatitis A Vaccines (1 of 2 - Risk 2-dose series) 01/23/2000 Hepatitis B Vaccines (1 of 3 - 19+ 3-dose series) 01/23/2000 HPV Vaccines (3 - 3-dose SCDM series) 12/24/2022 07/29/2022, 06/25/2022 Depression Screening 08/31/2024 Hepatitis C Screening 02/06/2025 Hypertension/CHF/CAD Annual BMP Blood Test 02/06/2025 Social Influencers of Health Screening 02/06/2025 COVID-19 Vaccine (2024- season) 2025 09/17/2022, 08/08/2021, 12/19/2020, Additional history exists Influenza Vaccine (#1) 2025 , 07/17/2021, 05/20/2016 Cholesterol Screening (Lipid Panel) 09/28/2028 09/28/2023 DTaP,Tdap,and Td Vaccines (3 - Td or Tdap) 09/22/2033 09/22/2023, 07/17/2021 RSV Immunization Adult Patients (1 - 1-dose 75+ series) 01/23/2056 HIV Screening Completed 04/03/2021 HIB Vaccines Aged Out No longer eligi ble based on patient's age to complete this topic IPV Vaccines Aged Out No longer eligi ble based on patient's age to complete this topic MMR Vaccines Aged Out No longer eligi ble based on patient's age to complete this topic Meningococcal ACWY Vaccine Aged Out N o longer eligible based on patient's age to complete this topic Meningococcal B Vaccine Aged Out No l onger eligible based on patient's age to complete this topic Pneumococcal Vaccine: Pediatrics (0 to 5 Years) and At-Risk Patients (6 to 49 Years) Aged Out No longer eligible based on patient's age to complete this topic RSV Immunization Patients Under 20 months Aged Out No longer eligible based on patient's age to complete this topic Varicella Vaccines Aged Out No longer eligible based on patient's age to complete this topic Insurance MEDICAID - [place] Care Teams Executive Vice President Of Sales Relationship Specialty Start Date End Date Humaira Limon NP [address] [place] [id number] PCP - General 02/06/25
[2025-08-15 15:52] LABS: Cholesterol 207 mg/dL (<200); HDL Cholesterol 50 mg/dL (>40); Triglycerides 114 mg/dL (<150)
[2025-08-15 16:04] LABS: Hemoglobin A1C 123.7723 umol/L
== END 2025-08-15 11:11 | disposition home or self-care (01) ==
LOC: HO.HHCL 11:10
PROVIDERS: PCP Nurse Practitioner Primary Care; Visit Provider Nurse Practitioner Primary Care
DX: R73.03 Prediabetes (principal)
CPT/HCPCS: 36415; 80061; 83036